=== PATIENT | male | born 1995 | race Hispanic/Latino ===

== ENCOUNTER 2025-09-13 11:30 | Inpatient (IN) | payer OTHER ==
[2025-09-13 14:46] VITALS: BMI 33.9
[2025-09-15] MEDS ORDERED: Bupivacaine 0.25% HCL 30 ML VIAL ONE (10:53)
[2025-09-15] MEDS ORDERED: Rocuronium Bromide 10 MG/ML (10ML VIAL) ONE (11:32)
[2025-09-15] MEDS ORDERED: Lidocaine 1% PF 5 ML VIAL ONE (11:32)
[2025-09-15] MEDS ORDERED: CEFAZOLIN 2 GM VIAL ONE (11:39)
[2025-09-15] MEDS ORDERED: PROPOFOL 200 MG/20 ML VIAL ONE (12:51)
[2025-09-15] MEDS ORDERED: Glycopyrrolate 0.2 MG/ML 5 ML SYRINGE ONE (12:51)
[2025-09-15] MEDS ORDERED: Ketorolac Tromethamine 30 MG (1 mL) VIAL ONE (13:05)
[2025-09-15] MEDS ORDERED: Ondansetron PF 4 MG/2 ML Vial ONE (13:05)
[2025-09-15] MEDS ORDERED: SUGAMMADEX SODIUM 200 MG/2 ML VIAL ONE (15:03)
[2025-09-15] MEDS ORDERED: Ondansetron PF 4 MG/2 ML Vial IVP PRN ×2 (15:49→16:30)
[2025-09-15] MEDS ORDERED: diphenhydrAMINE 50 MG/ML VIAL IVP PRN (15:49)
[2025-09-15] MEDS ORDERED: hydrALAZINE 20 MG/ML VIAL SLOW IVP PRN (15:49)
[2025-09-15] MEDS ORDERED: Dextrose 50% Abboject 50 ML SYRINGE SLOW IVP PRN (15:49)
[2025-09-15] MEDS ORDERED: Glucagon 1 MG/ML KIT IM PRN (15:49)
[2025-09-15] MEDS ORDERED: HYDROmorphone 0.5 MG/0.5 ML SYRINGE ONE (16:02)
[2025-09-15] MEDS ORDERED: diphenhydrAMINE 25 MG CAP PO PRN (16:30)
[2025-09-15] MEDS ORDERED: fentaNYL Citrate/PF 55 ML IV SCH (16:30)
[2025-09-15] MEDS ORDERED: diphenhydrAMINE 50 MG/ML VIAL IM/IV PRN (16:30)
[2025-09-15] MEDS: Ketorolac Tromethamine 30 MG (1 mL) VIAL IVP SCH (17:42)
[2025-09-15] MEDS: D5 1/2 NS w/20 mEq KCL 1,000 ML IV SCH (17:43)
[2025-09-15] MEDS: FLU (Fluarix Triv) 25-26 (6MOS UP)/PF 45 MCG/0.5 ML Syringe IM ONE (18:28)
[2025-09-16 04:57] LABS: #Basophils Less than 0.03 10x3/uL (0.0-0.2); #Eosinophils Less than 0.03 10x3/uL (0.0-0.7); #Monocytes 1.43 10x3/uL (0.11-0.59); #Neutrophils 10.37 10x3/uL (1.40-6.50); %Basophils 0.2 % (0.0-1.0); %Eosinophils 0.0 % (0.0-10.0); %Lymphocytes 10.0 % (21.0-51.0); %Monocytes 10.8 % (0.0-10.0); %Neutrophils 78.6 % (42.0-75.0); Hematocrit 42.6 % (42.0-52.0); Hemoglobin 13.3 g/dL (14.0-18.0); Mean Corpuscular Hemoglobin 25.7 pg (27.0-31.0); Mean Corpuscular Volume 82.4 fL (78.0-98.0); Platelet Count 217 10x3/uL (130-400); Red Blood Cell (RBC) Count 5.17 mill/uL (4.70-6.10); White Blood Cell (WBC) Count 13.19 10x3/uL (4.8-10.8)
[2025-09-16 05:27] LABS: Anion Gap 16 mmol/L (10-20); BUN (Urea Nitrogen) 14 mg/dL (8.9-20.6); Calc. Creatinine Clearance 208 mL/min (70-130); Calcium 9.0 mg/dL (7.8-10.44); Carbon Dioxide 23 mmol/L (22-29); Chloride 104 mmol/L (98-107); Glucose 137 mg/dL (70-105); Potassium 4.3 mmol/L (3.5-5.1); Sodium 139 mmol/L (136-145)
[2025-09-16] MEDS: Enoxaparin 40 MG (0.4 mL) SYRINGE SC SCH (07:59)
[2025-09-16] MEDS: Pantoprazole 40 MG VIAL IVP SCH (08:00)
[2025-09-16] MEDS ORDERED: Hydrocodone-Acetamin 15 ML UDCUP PO PRN (11:39)
[2025-09-16 11:56] VITALS: BP 158/98; TEMP 98.6
== END 2025-09-16 15:34 | disposition home or self-care (01) | DRG 328 ==
LOC: SURG A 09-15 10:01 → SURG B 09-15 17:30
PROVIDERS: ADMIT Surgery; ATTEND Surgery
PROC: 0DB64ZZ Excision of Stomach, Percutaneous Endoscopic Approach (ICD-10-PCS; principal; 2025-09-15)
PROC: 8E0W4CZ Robotic Assisted Procedure of Trunk Region, Percutaneous Endoscopic Approach (ICD-10-PCS; 2025-09-15)
DX: C16.9 Malignant neoplasm of stomach, unspecified (principal); E78.5 Hyperlipidemia, unspecified; Z87.891 Personal history of nicotine dependence; M54.9 Dorsalgia, unspecified; E66.9 Obesity, unspecified; Z68.33 Body mass index [BMI] 33.0-33.9, adult
CPT/HCPCS: 36415; 80048; 85025; 88309; 88341; 88342; 88360; 90656; A6258; J0169; J0665; J1100; J1171; J1650; J1885; J2405; J2470; J2704; J3010; J3480; S2900

== ENCOUNTER 2025-09-13 14:31 | Outpatient (CLI) | payer OTHER ==
[2025-09-13 15:14] LABS: #Basophils 0.07 10x3/uL (0.0-0.2); #Eosinophils 0.31 10x3/uL (0.0-0.7); #Monocytes 1.19 10x3/uL (0.11-0.59); #Neutrophils 5.11 10x3/uL (1.40-6.50); %Basophils 0.7 % (0.0-1.0); %Eosinophils 3.3 % (0.0-10.0); %Lymphocytes 28.4 % (21.0-51.0); %Monocytes 12.7 % (0.0-10.0); %Neutrophils 54.8 % (42.0-75.0); Hematocrit 44.7 % (42.0-52.0); Hemoglobin 13.8 g/dL (14.0-18.0); Mean Corpuscular Hemoglobin 25.8 pg (27.0-31.0); Mean Corpuscular Volume 83.6 fL (78.0-98.0); Platelet Count 214 10x3/uL (130-400); Red Blood Cell (RBC) Count 5.35 mill/uL (4.70-6.10); White Blood Cell (WBC) Count 9.34 10x3/uL (4.8-10.8)
[2025-09-13 15:35] LABS: ALT (SGPT) 47 U/L (Less than 45); AST (SGOT) 26 U/L (11-34); Albumin 4.3 g/dL (3.1-4.5); Alkaline Phosphatase 104 U/L (40-110); Anion Gap 15 mmol/L (10-20); BUN (Urea Nitrogen) 11 mg/dL (8.9-20.6); Bilirubin, Total 0.5 mg/dL (0.3-1.2); Calc. Creatinine Clearance 0 mL/min (70-130); Calcium 9.5 mg/dL (7.8-10.44); Carbon Dioxide 26 mmol/L (22-29); Chloride 104 mmol/L (98-107); Globulin 3.6 g/dL (2.4-3.5); Glucose 103 mg/dL (70-105); Potassium 4.2 mmol/L (3.5-5.1); Sodium 141 mmol/L (136-145)
== END 2025-09-13 14:32 | disposition home or self-care (01) ==
LOC: LABBT 14:31
PROVIDERS: ATTEND Surgery
DX: Z01.812 Encounter for preprocedural laboratory examination (principal); C49.A0 Gastrointestinal stromal tumor, unspecified site
CPT/HCPCS: 80053; 85025